=== PATIENT | female | born 1965 | race Caucasian/White ===

== ENCOUNTER 2018-02-21 08:30 | Inpatient (IN) | payer BC ==
--- NOTE | 2018-02-14 11:03 | HP ---
Admitting History and Physical - Primary Care Physician PCP: Jose Olguin - Admission Chief Complaint: Right breast cancer History of Present Illness: 52 year old postmenapausal female who noticed a lump right breast 2016. Mammogram and US 08/2017 showed highly suspicious mass 1.8 cm right breast at 9: 00. 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 MRI done at [facility] was reveiwed at [place] and showed right breast cancer 4.3x3.5x5 cm and another area of enhancement corresponding to calcifications. two other separate sterotactic core bxs were done showing 09/2017 at 10:00 DCIS. and 9: 00 benign findings. FNA of right axillary node was positive for mets. Chemotherapy ACTHP at [place]. Breast MRI 01/2018 showed resolution of enhancement of upper outer quadrant. cancer right breast small right 1:00 enhancement which may be intramammary node recommended comparison. Follow up mammogram and US was also done at [facility].Comparison to MRI showed complete response and unchanged 1:00 density birad 3. History Source: Patient Limitations to Obtaining History: No Limitations - Past Medical History Gastrointestinal: Yes: GERD, Other (diarhea related to chemotherapy) - Past Surgical History Past Surgical History: Yes: Cholecystectomy (LAP) Additional Past Surgical History: rectal [id number] - Smoking History Smoking history: Former smoker Have you smoked in the past 12 months: No - Alcohol/Substance Use Hx Alcohol Use: Yes (social) Home Medications - Allergies Allergies/Adverse Reactions: Allergies Allergy/AdvReac Type Severity Reaction Status Date / Time diphenhydramine AdvReac Verified 02/14/18 11:05 [From Benadryl] - Home Medications Home Medications (free text): lorazaepam,perjetta and herceptin,immodium prn Family Disease History - Family Disease History Family Disease History: CA: Grandparent (pat GM breast ca 60//pat GF bone ca// mat aunt breast ca 54//mat gf esophageal ca), Father (lung with mets) Physical Examination Constitutional: Yes: Well Nourished Breast(s): Yes: Other (small b sized cups without skin changes, mild thickening right upper outer quadrant but no discrete masses no palpable axillary suprclavicular or cervical adenopathy) Problem List - Problems (1) Breast cancer, right Code(s): C50.911 - MALIGNANT NEOPLASM OF UNSP SITE OF RIGHT FEMALE BREAST Qualifiers: Breast location: upper outer quadrant of breast Patient sex: female Assessment/Plan Right breast mastectomy ,lymphoscintogram , sentenel node biopsy, possible axillary node dissection reconstruction
[2018-02-15 12:04] VITALS: BMI 26.9
[2018-02-21] MEDS ORDERED: BUPIVACAINE LIPOSOME/PF (EXPAREL) 266 MG/20 ML VIAL ONE ×2 (09:22→11:06)
[2018-02-21] MEDS ORDERED: BUPIVACAINE HCL/PF 2.5 MG/ML - 30 ML VIAL IJ ONE ×2 (09:22→11:06)
[2018-02-21] MEDS ORDERED: SODIUM CHLORIDE 0.9% P/F 10 ML VIAL IJ ONE ×2 (09:22→11:06)
[2018-02-21] MEDS ORDERED: LIDOCAINE 1%/EPI 1:100000 (20 ML MULTI DOSE VIAL) ONE (09:23)
[2018-02-21] MEDS ORDERED: ZOLPIDEM TARTRATE 5 MG TABLET PO PRN (13:40)
[2018-02-21] MEDS ORDERED: ACETAMINOPHEN 325 MG TABLET (FP) PO PRN (13:40)
[2018-02-21] MEDS ORDERED: ONDANSETRON 4 MG/2 ML VIAL IVPUSH PRN ×2 (13:40→15:02)
[2018-02-21] MEDS ORDERED: DEXTROSE 5%-0.45% SALINE 1,000 ML IV SCH (13:45)
[2018-02-21] MEDS ORDERED: oxyCODONE HCL 5 MG TABLET PO PRN (15:02)
[2018-02-21] MEDS ORDERED: PROMETHAZINE HCL 25 MG/1 ML VIAL IVPUSH PRN (15:02)
--- NOTE | 2018-02-21 15:02 | OP ---
Operative Note - Note: Operative Date: 02/21/18 Pre-Operative Diagnosis: right chest wall abnormality after mastectomy for breast CA. left breast asymmetry Operation: left breast augmentation with implant. right breast reconstruction with alloderm and inplant Post-Operative Diagnosis: Same as Pre-op Surgeon: Clyde Venegas Picture Painter: Sandhya Butler Anesthesiologist/RN ADVICE: Levi Deng Anesthesia: General Estimated Blood Loss (mls): 50 Drains & Tubes with Location: TAYLOR drain x2 right chest wall Fluid Volume Replaced (mls): 1,700 Operative Report Dictated: Yes
--- NOTE | 2018-02-21 15:04 | SURG ---
Surgery Tree Expert Note Tree Expert: Sandhya Butler PA-C Date of Service: 02/21/18 Diagnosis: right chest wall abnormality after mastectomy for breast CA left breast asymmetry Procedure: left breast augmentation with implant right breast reconstruction with alloderm and implant I was present for the entirety of the operative procedure. For further detail, please refer to operative report. <Sandhya Butler - Last Filed: 02/21/18 15:02> I was present for the entirety of the operative procedure. For further detail, please refer to operative report. <Clyde Venegas - Last Filed: 02/22/18 13:22> Visit type - Case Type Case Type: Scheduled - Emergency Emergency Visit: No - New patient This patient is new to me today: Yes Date on this admission: 02/21/18 <Sandhya Butler - Last Filed: 02/21/18 15:02>
[2018-02-21] MEDS ORDERED: LACTATED RINGERS SOLUTION 1,000 ML IV SCH (15:15)
[2018-02-21] MEDS ORDERED: ceFAZolin SODIUM 1 GM VIAL IVPB ONE (15:30)
[2018-02-21] MEDS ORDERED: ceFAZolin SODIUM 1 GM VIAL ONE (15:31)
[2018-02-21] MEDS: CEFAZOLIN 1 GM/D5W 1 GRAM/50 ML BAG IVPB SCH ×2 (16:37→20:58)
[2018-02-22] MEDS: oxyCODONE HCL 5 MG TABLET PO PRN ×5 (01:17→21:41)
[2018-02-22] MEDS: CEFAZOLIN 1 GM/D5W 1 GRAM/50 ML BAG IVPB SCH ×4 (02:32→21:41)
[2018-02-22 07:39] LABS: HEMOGLOBIN 9.8 GM/dl (10.7-15.3); MCH 28.6 pg (25.7-33.7); MCHC 32.6 g/dl (32.0-36.0); MEAN CELL VOLUME 87.7 fl (80-96); MEAN PLT VOLUME 7.6 fl (7.5-11.1); PLATELET COUNT 257 K/MM3 (134-434); RBC 3.42 M/mm3 (3.60-5.2); RDW 13.5 % (11.6-15.6); WHITE BLOOD COUNT 6.6 K/mm3 (4.0-10.8)
[2018-02-22] MEDS: HEPARIN NA (PORCINE) 5,000 UNITS/ML 1ML VIAL SQ SCH ×2 (07:55→21:41)
--- NOTE | 2018-02-22 08:35 | OP ---
DATE OF OPERATION: 02/21/2018 PREOPERATIVE DIAGNOSIS: Right breast cancer, lateral overlapping region. POSTOPERATIVE DIAGNOSIS: Right breast cancer, lateral overlapping region, status post neoadjuvant chemotherapy. PROCEDURE: Right breast nipple-sparing mastectomy with right axillary sentinel lymph node biopsy with direct implant reconstruction and left breast augmentation implant for symmetry. ANESTHESIA: General laryngeal mask airway anesthesia. PRIMARY SURGEON: Jose Olguin MD ADMIN ASST: MANDY Smith PRIMARY SURGEON FOR THE RIGHT BREAST DIRECT IMPLANT RECONSTRUCTION WITH ALLODERM: Jose Venegas MD. He also performed the left breast augmentation implant for symmetry. COMPLICATIONS: There were no complications. INDICATIONS: Briefly, the patient is a 52-year-old premenopausal white female with Martiniquais, [place], [place]ian, and descent. She has a family history with her maternal grandmother who had postmenopausal breast cancer and a maternal aunt who had breast cancer in her 50s. Her maternal grandfather had esophageal cancer and father had lung cancer. The patient was found to have some dimpling towards the outer aspect of the right breast the end of 2016 and eventually underwent a mammography and ultrasound at [facility] in August of 2017 showing a right breast 9 o'clock 1.8-cm mass corresponding to an ultrasound density, and core biopsy showed a poorly differentiated evasive duct cancer, which was ER/WI negative HER2 3+. An MRI showed a 4.3 x 3.5 x 5 cm cancer. 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 She underwent AC-THP chemotherapy at [facility] and then followup MRI after neoadjuvant chemotherapy showed resolution of the axillary enhancement and the breast cancer, but otherwise, a small right breast 1 o'clock density, which was felt to be a likely benign intramammary lymph node on ultrasound. She was advised on undergoing a right breast mastectomy and we spoke t to her about all risks and benefits of the procedure. She wanted to go forward with the nipple-sparing procedure, and given the distance of the nipple, we felt that this would be allowed. However, we did tell her lack of any long-term followup on patients after neoadjuvant chemotherapy. She understood this, and she understood she was going to have post-mastectomy radiation. She was seen by Dr. Venegas, our plastic surgeon preoperatively and chose to have direct implant reconstruction on the right side with AlloDerm and an augmentation on the left side for symmetry. DESCRIPTION OF PROCEDURE: She was brought in for the procedure on February 21, 2018. She first underwent a lymphoscintigraphy at [facility] through a periareolar injection of technetium 99 and then was brought to the [place] holding area. In the holding area, site verification was made and informed consent was obtained. She was marked preoperatively by the plastic surgeon. She was brought into the operating room and laid on the OR table in the supine positon. Venodynes were placed on the lower extremities. She received 2 g of Ancef prior to incision. She was given general laryngeal mask airway anesthesia, and both breasts were sterilely prepped and draped in the usual fashion with the right arm prepped in the field. No blue dye was injected given the nipple-sparing procedure. The surgery was started on the right side with the sentinel lymph node biopsy as Dr. Venegas performed the augmentation implant on the left side, which will be dictated separately. Incision was made just below the hair-bearing area of the right axilla, and dissection was undertaken using the Neoprobe to direct the dissection. Three sentinel lymph nodes removed from the right axillary region in the level1, level 2 region. The 1st sentinel lymph node had a 10-second gamma count of 1364, the 2nd sentinel lymph node had no gamma counts, the 3rd sentinel lymph node had a 10-second gamma count of 229. All 3 nodes were sent for frozen section, came back negative, so, no further nodes were removed. Background counts after removal of these 3 nodes was 57. Hemostasis was achieved. At this point, the mastectomy was performed through an inframammary incision. A 10-cm incision was made in the right breast inframammary fold, and the skin edges were everted, and the breast tissue retracted inferiorly using [place] clamps. The skin flap was raised using the PEAK radiofrequency device superiorly to the level of the clavicle and medially to the level of the sternum and laterally to the level of the latissimus and inferiorly below the level of the inframammary fold. The breast was taken down off the pectoralis major muscle using electrocautery from inferomedial to superolateral, completely removed intact. It was oriented with the long-lateral short-superior suture. It was weighed to allow for appropriate cosmetic result. Specimen radiograph of the breast showed removal of all 3 clips. The wound was copiously irrigated, and skin flaps were trimmed for good cosmetic result. A separate anterior margin was taken on the lateral skin flap and a suture was used to russell the biopsy cavity side. This was sent separately to Pathology as anterior margin, right breast. At this point, the wound was copiously irrigated, and Dr. Venegas became the primary surgeon to perform the direct implant reconstruction on the right side using AlloDerm. Two [place] drains will be placed around the right implant, and all wounds will be closed by plastic surgery using interrupted 3-0 deep dermal PDS suture and a running 4-0 subcuticular PDS suture. We did use the SPY Skin Perfusion Device during the case both before and after the implant reconstruction, which showed excellent skin perfusion. The patient will be recovered and then admitted postoperatively for pain and wound management. All sponge and needle counts were correct at the end of the case, and estimated blood loss was about 125 mL. She was hemodynamically stable throughout. JOSE OLGUIN M.D. [id number]
--- NOTE | 2018-02-22 09:09 | PN ---
Progress Note (short form) - Note Progress Note: Post op day#1.s/p Right mastectomy with axillary LN dissection and left breast augmentation under [place] uneventful.Patient stable.No any anesthesia related problem.Patient DC from the anesthesia care.
--- NOTE | 2018-02-22 09:23 | PN ---
Progress Note, Physician Chief Complaint: S/P right mastectomy with implant reconstruction and left implant reconstruction POD#1 History of Present Illness: Patient was seen at the bedside and reports good pain control with the oral pain meds. She is voiding and tolerating po well. - Current Medication List Current Medications: Active Medications Acetaminophen (Tylenol -) 650 mg PO Q4H PRN PRN Reason: FEVER Heparin Sodium (Porcine) (Heparin -) 5,000 unit SQ BID@0800,2000 [facility] Last Admin: 02/22/18 07:55 Dose: 5,000 unit Cefazolin Sodium (Ancef 1 Gm Premixed Ivpb -) 1 gram in 50 mls @ 100 mls/hr IVPB Q6H-IV [facility] Stop: 02/28/18 14:59 Last Admin: 02/22/18 02:32 Dose: 100 mls/hr Dextrose/Sodium Chloride (D5-1/2ns -) 1,000 mls @ 100 mls/hr IV ASDIR [facility] Last Admin: 02/21/18 16:37 Dose: Not Given Lactated Ringer's (Lactated Ringers Solution) 1,000 mls @ 75 mls/hr IV ASDIR [facility] Last Admin: 02/21/18 16:37 Dose: Not Given Ondansetron HCl (Zofran Injection) 4 mg IVPUSH Q6H PRN PRN Reason: NAUSEA AND/OR VOMITING Oxycodone HCl (Roxicodone -) 5 mg PO Q4H PRN PRN Reason: PAIN LEVEL 1-5 Last Admin: 02/22/18 07:54 Dose: 5 mg Oxycodone HCl (Roxicodone -) 10 mg PO Q4H PRN PRN Reason: PAIN LEVEL 6-10 Zolpidem Tartrate (Ambien -) 5 mg PO HS PRN PRN Reason: Insomnia - Objective Vital Signs: Vital Signs Temperature 99.4 F 02/22/18 06:00 Pulse Rate 74 02/22/18 06:00 Respiratory Rate 18 02/22/18 06:00 Blood Pressure 98/56 02/22/18 06:00 O2 Sat by Pulse Oximetry (%) 98 02/22/18 06:00 Constitutional: Yes: Well Nourished, Calm Breast(s): Yes: Other (Right breast flap with ecchymosis. It is warm to touch without evidence of epidermalysis. Steristrips are intact without discharge or erythema. The JPs have serosanginous discharge.) Labs: CBC, BMP 02/22/18 07:10 Problem List - Problems (1) Breast cancer, right Code(s): C50.911 - MALIGNANT NEOPLASM OF UNSP SITE OF RIGHT FEMALE BREAST Qualifiers: Breast location: upper outer quadrant of breast Patient sex: female Assessment/Plan Assessment: S/P right mastectomy with bilateral implant reconstruction POD #1 Plan: IV axbx while in the hospital OOB with asssistance Teach TAYLOR monitoring Plan for discharge in the am
--- NOTE | 2018-02-22 15:39 | DS ---
Physical Examination Vital Signs: Vital Signs Temperature 98.4 F 02/22/18 14:05 Pulse Rate 82 02/22/18 14:05 Respiratory Rate 16 02/22/18 14:05 Blood Pressure 105/57 L 02/22/18 14:05 O2 Sat by Pulse Oximetry (%) 95 02/22/18 14:05 Constitutional: Yes: Well Nourished Breast(s): Yes: Other (flaps viable right breast moderate echymosis steristrips in place TAYLOR drains functioning well, left breast steristrips in place.) Labs: CBC, BMP 02/22/18 07:10 Discharge Summary Reason For Visit: RIGHT BREAST CA Condition: Good - Instructions Diet, Activity, Other Instructions: Post Operative Instructions - [facility] We hope your recovery will be uneventful. For those of you who have been given general anesthesia, there is a possibility you might have some lightheadedness and possibly nausea. It is important that each patient, especially those who have had general anesthesia, follow these instructions, please: 1. Do NOT operate a motor vehicle for 24 hours. 2. Do NOT drink any alcoholic beverages for 24 hours. 3. Do NOT take any sedatives, narcotics, or tranquilizers for 24 hours unless specifically ordered by your surgeon. 4. Do NOT undertake any strenuous exercise or outside activity for 24 hours unless specifically permitted by your surgeon. 5. Eat light foods that are easy to digest. If you have any problems with nausea and vomiting, lie down and rest. If it continues, call your surgeon. 6. Call your surgeon AT ONCE if you have problems with: a. Bleeding b. Urinating c. Excessive pain or drainage d. Numbness If any problems occur, call your physician first. If you cannot reach him/her, call the Ambulatory Surgery Unit at [phone], or the Emergency Room at . Follow up with Drs. Olguin / Jose in 7 days. Medication: Vicodin E-S OR Percocet 1-2 tablets every 4-6 hrs as needed for 5-7 days. Wound Care: Keep wound dry and clean for 48 hours. You may remove the dressing after 48 hours and may shower. Keep steri-strips in place until follow-up appointment No heavy lifting or strenuous activities. Your surgeon used 3M DuraPrep Surgical Solution, a bacteria-killing skin preparation. It is recommended that this film remain on the skin after the procedure. The film will gradually wear away. If, however, early removal is desired: 1. Apply 8610 or 8611 3M Remover solution to the prepped area , keeping away from the wound edge or puncture site. Wipe off with a disposable towel. OR 2. Soak gauze with 70% Isopropyl alcohol and place on the prepped area for at least 40 seconds. Lightly scrub to remove the solution. BREAST SURGERY INSTRUCTIONS Mayo Olguin M.D., FACS Jose Olguin M.D., FACS Haydee Garcia M.D., FACS 1. Please call the office at to make a follow up appointment with your surgeon. This number can be also used for any urgent issues you may have. 2. Call us immediately if any of the following occur: *Bleeding from the incision or drain site (a small amount is normal) *Fever or chills *Redness and worsening tenderness around the surgical site *Drainage of pus or fluid from the incision or drain site 3. You may change the surgical dressing two (2) days after your surgery, and may shower then. If you have drains, you may shower after they have been removed, until then take a sponge bath. 4. It is normal for there to be some bruising and tenderness around the surgical site, and the breast may also be firm in this area. 5. Your surgeon used 3M DuraPrep Surgical Solution, a bacteria-killing skin preparation. It is recommended that this film remain on the skin after the procedure. The film will gradually wear away. If, however, early removal is desired: 1. Apply 8610 or 8611 3M Remover solution to the prepped area, keeping away from the wound edge or puncture site. Wipe off with a disposable towel. OR 2. Soak gauze with 70% Isopropyl alcohol and place on the prepped area for at least 40 seconds. Lightly scrub to remove the solution. 6. Please wear a comfortable bra (sports or surgical bra) all day and all night until your first follow-up visit with your surgeon. 7. The pain medicine you have been prescribed may make you constipated; make sure you drink plenty of water. You may use an over the counter laxative if needed. 8. You may resume your normal diet after surgery, although you may want to avoid rich foods for the first twenty-four (24) hours after surgery. Alcoholic drinks should be avoided while taking the prescribed pain medicine. 9. You may resume normal activities as long as there is no discomfort, but do not do upper body exercises until after your follow-up appointment. Do not lift anything heavier than a large phone book. You may resume driving once you have stopped taking the prescribed pain medicine and feel comfortable doing arm movements. WEAR BRA/NO SHOWER/EMPTY AND RECORD TAYLOR OUTPUT TWICE DAILY Referrals: Jose Olguin MD [Staff Physician] - Clyde Venegas MD [Staff Physician] - Disposition: HOME - Home Medications Comprehensive Discharge Medication List: Ambulatory Orders L.acidoph,Paracasei, B.lactis [Probiotic] 1 each PO DAILY 02/15/18 Multivitamin [One Daily] 1 each PO DAILY 02/15/18 Cefadroxil 500 mg PO BID #20 capsule 02/22/18 Oxycodone HCl/Acetaminophen [Percocet 5-325 mg Tablet] 1 - 2 tab PO Q6H PRN #30 tab MDD 6 02/22/18
[2018-02-23] MEDS: CEFAZOLIN 1 GM/D5W 1 GRAM/50 ML BAG IVPB SCH (03:00)
[2018-02-23] MEDS ORDERED: CEPHALEXIN MONOHYDRATE 500 MG CAPSULE (UD) PO SCH (06:30)
[2018-02-23 06:56] VITALS: BP 91/57; PULSE 71; TEMP 99.2
[2018-02-23] MEDS: HEPARIN NA (PORCINE) 5,000 UNITS/ML 1ML VIAL SQ SCH (08:56)
--- NOTE | 2018-02-23 11:54 | DS ---
Physical Examination Vital Signs: Vital Signs Temperature 99.2 F 02/23/18 06:00 Pulse Rate 71 02/23/18 06:00 Respiratory Rate 18 02/23/18 06:00 Blood Pressure 91/57 L 02/23/18 06:00 O2 Sat by Pulse Oximetry (%) 97 02/23/18 06:00 Constitutional: Yes: No Distress Wound/Incision: Yes: Clean/Dry, Well Approximated Labs: CBC, BMP 02/22/18 07:10 Discharge Summary Reason For Visit: RIGHT BREAST CA Procedures: Principal: Right NE-MTX with SLNBx + Bilateral Implants Condition: Good - Instructions Diet, Activity, Other Instructions: Post Operative Instructions - [facility] We hope your recovery will be uneventful. For those of you who have been given general anesthesia, there is a possibility you might have some lightheadedness and possibly nausea. It is important that each patient, especially those who have had general anesthesia, follow these instructions, please: 1. Do NOT operate a motor vehicle for 24 hours. 2. Do NOT drink any alcoholic beverages for 24 hours. 3. Do NOT take any sedatives, narcotics, or tranquilizers for 24 hours unless specifically ordered by your surgeon. 4. Do NOT undertake any strenuous exercise or outside activity for 24 hours unless specifically permitted by your surgeon. 5. Eat light foods that are easy to digest. If you have any problems with nausea and vomiting, lie down and rest. If it continues, call your surgeon. 6. Call your surgeon AT ONCE if you have problems with: a. Bleeding b. Urinating c. Excessive pain or drainage d. Numbness If any problems occur, call your physician first. If you cannot reach him/her, call the Ambulatory Surgery Unit at [phone], or the Emergency Room at . Follow up with Drs. Olguin / Jose in 7 days. Medication: Vicodin E-S OR Percocet 1-2 tablets every 4-6 hrs as needed for 5-7 days. Wound Care: Keep wound dry and clean for 48 hours. You may remove the dressing after 48 hours and may shower. Keep steri-strips in place until follow-up appointment No heavy lifting or strenuous activities. Your surgeon used 3M DuraPrep Surgical Solution, a bacteria-killing skin preparation. It is recommended that this film remain on the skin after the procedure. The film will gradually wear away. If, however, early removal is desired: 1. Apply 8610 or 8611 3M Remover solution to the prepped area , keeping away from the wound edge or puncture site. Wipe off with a disposable towel. OR 2. Soak gauze with 70% Isopropyl alcohol and place on the prepped area for at least 40 seconds. Lightly scrub to remove the solution. BREAST SURGERY INSTRUCTIONS Mayo Olguin M.D., FACS Jose Olguin M.D., FACS Haydee Garcia M.D., FACS 1. Please call the office at to make a follow up appointment with your surgeon. This number can be also used for any urgent issues you may have. 2. Call us immediately if any of the following occur: *Bleeding from the incision or drain site (a small amount is normal) *Fever or chills *Redness and worsening tenderness around the surgical site *Drainage of pus or fluid from the incision or drain site 3. You may change the surgical dressing two (2) days after your surgery, and may shower then. If you have drains, you may shower after they have been removed, until then take a sponge bath. 4. It is normal for there to be some bruising and tenderness around the surgical site, and the breast may also be firm in this area. 5. Your surgeon used 3M DuraPrep Surgical Solution, a bacteria-killing skin preparation. It is recommended that this film remain on the skin after the procedure. The film will gradually wear away. If, however, early removal is desired: 1. Apply 8610 or 8611 3M Remover solution to the prepped area, keeping away from the wound edge or puncture site. Wipe off with a disposable towel. OR 2. Soak gauze with 70% Isopropyl alcohol and place on the prepped area for at least 40 seconds. Lightly scrub to remove the solution. 6. Please wear a comfortable bra (sports or surgical bra) all day and all night until your first follow-up visit with your surgeon. 7. The pain medicine you have been prescribed may make you constipated; make sure you drink plenty of water. You may use an over the counter laxative if needed. 8. You may resume your normal diet after surgery, although you may want to avoid rich foods for the first twenty-four (24) hours after surgery. Alcoholic drinks should be avoided while taking the prescribed pain medicine. 9. You may resume normal activities as long as there is no discomfort, but do not do upper body exercises until after your follow-up appointment. Do not lift anything heavier than a large phone book. You may resume driving once you have stopped taking the prescribed pain medicine and feel comfortable doing arm movements. WEAR BRA/NO SHOWER/EMPTY AND RECORD TAYLOR OUTPUT TWICE DAILY Referrals: Jose Olguin MD [Staff Physician] - Clyde Venegas MD [Staff Physician] - Disposition: HOME - Home Medications Comprehensive Discharge Medication List: Ambulatory Orders L.acidoph,Paracasei, B.lactis [Probiotic] 1 each PO DAILY 02/15/18 Multivitamin [One Daily] 1 each PO DAILY 02/15/18 Cefadroxil 500 mg PO BID #20 capsule 02/22/18 Oxycodone HCl/Acetaminophen [Percocet 5-325 mg Tablet] 1 - 2 tab PO Q6H PRN #30 tab MDD 6 02/22/18
--- NOTE | 2018-02-24 09:53 | OP ---
DATE OF OPERATION: 02/21/2018 SURGEON: Jose Venegas MD NETWORK OPERATIONS TECHNICIAN: Sandhya Butler PA-C PREOPERATIVE DIAGNOSES: 1. Right breast cancer. 2. Acquired chest wall deformity, status post breast cancer and mastectomy. 3. Asymmetry of reconstructed chest wall. POSTOPERATIVE DIAGNOSES: 1. Right breast cancer. 2. Acquired chest wall deformity, status post breast cancer and mastectomy. 3. Asymmetry of reconstructed chest wall. OPERATIVE PROCEDURE: 1. Right immediate breast reconstruction utilizing immediate insertion of silicone breast implant and AlloDerm reconstruction. 2. Left breast augmentation for symmetry post breast cancer. 3. Intraoperative Spy angiogram for diagnosis. 4. Interpretation of intraoperative angiogram x2. OPERATIVE INDICATION: The patient is a young woman of 52 years' age brought to the operating room by Dr. Jose Olguin for a right breast mastectomy and sentinel lymph node biopsy. The patient had previously undergone neoadjuvant chemotherapy and had a port previously placed on the chest wall on the left side. She required mastectomy and reconstruction with implant for reconstruction and symmetry on the opposite side. The risks and benefits of surgical versus nonsurgical alternatives as well as material complications were described to the patient on multiple occasions preoperatively, including today in the holding area, where she was marked in the standing position for outline of the incisions and planned with Dr. Olguin. All questions were asked and answered. OPERATIVE PROCEDURE IN DETAIL: The patient was taken to the operating room and, after induction of general anesthesia, Dr. Olguin began the right breast dissection, which will be dictated under a separate cover by him. At the same time, I began the procedure on the left breast in order to reconstruct the chest wall and create symmetry with the new reconstructed breast. An augmentation of the left breast with the previous port placement was planned and discussed with the patient preoperatively. She agreed to the planned procedure. At this point, I began the procedure by making a 4-cm incision in the inframammary fold of the left breast and then, using the lighted retractor and dissection, a subpectoral pocket was created on the left breast in order to place an implant. Dissection was carried superiorly from the 2nd rib medially to the sternal fibers and then down to the inframammary fold, where the origin of the pectoralis major muscle was divided. Hemostasis was meticulously obtained throughout. At this point, a long-acting Marcaine/Exparel solution in a diluted form was injected into the pectoralis major muscle and into the chest wall after dissection. At this point, an implant was chosen for reconstruction and a Natrelle Inspira SoftTouch breast implant, style SSM, 195 mL, was placed into this subpectoral pocket. Once this was accomplished, good shape and contour was seen, hemostasis was obtained meticulously throughout the breast, and matched the opposite breast. This was then closed in 3 layers using 3-0 PDS suture on the deep fascial of the left breast, 3-0 in a deep dermal fashion, and 4-0 Biosyn in a subcuticular fashion. Upon completion of the mastectomy and cancer operation on the right, a reconstruction of the right breast was carried out. At this point, the pectoralis major muscle was elevated on the right side, lifting the muscle superiorly from the 2nd rib, medially to the sternal fibers, dividing the origin of the pectoralis major muscle inferiorly and then bringing a contour perforated sheet of AlloDerm into the field. In the usual fashion, this was sutured to the pectoralis major muscle using a 3-0 Vicryl suture in a running fashion along the pectoralis major muscle itself, down to the lateral mammary fold on the right breast and then a 2nd suture begun on the medial side, running medially along the inframammary fold. Because 263 g of tissue were removed from this breast, an implant was chosen to match the opposite breast of 450 mL volume. A Natrelle Inspira SoftTouch breast implant, style SSF, 450 mL, was then placed into the right breast pocket and showed good symmetry in the sitting position. The sutures were then run medially towards themselves and sutured and tied together. Copious irrigation of the wound was performed and then 2 Tim-Woodard drains were brought out through separate stab wounds. The skin and subcutaneous tissue was advanced and closed upon itself using 3-0 PDS on the deep tissue, 3-0 in a deep dermal fashion, and 4-0 in a subcuticular fashion. All wounds were then closed and dressed with Dermabond, Steri-Strips, and a compressive dressing with a Fluffs dressing and gauze. Just after the mastectomy was performed, a Spy intraoperative angiogram was performed by injecting 4 mL of isocyanide green dye into the intravascular system and interpreting the right breast blood flow as adequate. This was then reperformed after the implant went in on the right breast to reveal good blood flow even after the implant was placed. All wounds were dressed sterilely. The patient was awakened, extubated, and transferred to the recovery room in satisfactory condition. She tolerated the procedure well. JOSE VENEGAS M.D. AMBER/[id number]
[2018-02-24] MEDS ORDERED: MULTIVITAMIN PO SCH (10:00)
[2018-02-24] MEDS ORDERED: PATIENT'S OWN MEDICATION (NON-FORMULARY) (L.Acidoph,Paracasei, B.Lactis [Probiotic] 1 EACH PO SCH (10:00)
--- NOTE | 2018-02-26 12:57 | PATH ---
Surgical Pathology Report Patient Name: NARCISO BARRETT Med. Rec. #: [id number] /Age/Gender: 1965 (Age: 52) / F Account: [id number] Location: ON LICENSE OF [facility] MED-SURG Taken: 02/21/2018 Received: 02/21/2018 Reported: 02/26/2018 Physicians: Jose Olguin M.D. Specimen(s) Received A: RIGHT BREAST SENTINEL LYMPH NODE #1 (FS) B: RIGHT BREAST SENTINEL LYMPH NODE #2 (FS) C: RIGHT BREAST SENTINEL LYMPH NODE #3 (FS) D: RIGHT RETROAREOLAR BIOPSY (FS) E: RIGHT BREAST MASTECTOMY F: RIGHT BREAST ANTERIOR MARGIN Clinical History Rt breast Ca Intraoperative Consult Diagnosis A. [place] node #1, right breast, frozen section: One negative lymph node. B. [place] node #2, right breast, frozen section: Two negative lymph nodes. Comment: One lymph node shows fibrosis and reactive changes, consistent with treatment effect; focal residual metastatic carcinoma cannot be entirely excluded. C. [place] node #3, right breast, frozen section: One negative lymph node. D. Right retroareolar biopsy, frozen section: Negative for malignancy. Joe Sauceda 02/21/18. Final Diagnosis A. BREAST, RIGHT, SENTINEL LYMPH NODE #1, EXCISION (FS): ONE LYMPH NODE, NEGATIVE FOR METASTATIC CARCINOMA ON H&E STAINED SECTIONS AND CYTOKERATIN (AE 1/3) IMMUNOSTAIN. (0/1). B. BREAST, RIGHT, SENTINEL LYMPH NODE #2, EXCISION (FS): TWO LYMPH NODES, NEGATIVE FOR METASTATIC CARCINOMA ON H&E STAINED SECTIONS AND CYTOKERATIN (AE 1/3) IMMUNOSTAINS. (0/2). SEE NOTE. Note: One lymph node shows an area of fibrous scarring and histiocytic reaction, consistent with focus of treated metastatic carcinoma. C. BREAST, RIGHT, SENTINEL LYMPH NODE #3, EXCISION (FS): ONE LYMPH NODE, NEGATIVE FOR METASTATIC CARCINOMA ON H&E STAINED SECTIONS AND CYTOKERATIN (AE 1/3) IMMUNOSTAIN. (0/1). D. RETROAREOLA, RIGHT, BIOPSY (FS): BENIGN BREAST TISSUE; NEGATIVE FOR MALIGNANCY. E. BREAST, RIGHT, NIPPLE-SPARING MASTECTOMY: NO RESIDUAL CARCINOMA IDENTIFIED. BENIGN BREAST TISSUE SHOWING DENSE HYALINIZING FIBROSIS WITH HISTIOCYTIC REACTION, CONSISTENT WITH TREATED TUMOR BED TISSUE. REMAINING BREAST TISSUE SHOWS SCLEROSING ADENOSIS, FOCAL ATYPICAL DUCTAL HYPERPLASIA (ADH) AND ASSOCIATED CALCIFICATIONS. PATHOLOGIC STAGE (ypTNM): ypT0 ypN0. See also prior biopsies from outside institutions ([id number], [id number], [id number]: our slide review case # [id number]). F. BREAST, RIGHT, ANTERIOR MARGIN, EXCISION: BENIGN FIBROADIPOSE TISSUE AND SKELETAL MUSCLE. Electronically Signed Sandhya Lin M.D. Gross Description A. Received fresh, labeled "right sentinel node #1" is a 1.2 x 0.8 x 0.2 cm portion of fibrofatty tissue in which a possible small lymph node is identified. Frozen section is performed on the specimen. The frozen section residue is entirely submitted in one cassette labeled FSA. B. Received fresh, labeled "right sentinel node #2" are two portions of fibrofatty tissue measuring 1.3 x 1.0 x 0.2 cm and 2.2 x 1.2 x 0.4 cm. Possible nodular tissue, consistent with lymph node tissue is identified in both tissue fragments. The larger tissue fragment is bisected and frozen section is performed on both specimens. The frozen section residue is entirely submitted in two cassettes as follows: FSB1: Smaller tissue fragment, FSB2: Larger tissue fragment, bisected. C. Received fresh, labeled "right sentinel node #3" is a 1.0 x 0.8 x 0.2 cm portion of fibrofatty tissue in which a possible small lymph node is identified. Frozen section is performed on the specimen. The frozen section residue is entirely submitted in one cassette labeled FSC. D. Received fresh, labeled "right retroareolar biopsy" is a 1.4 x 1 x 0.2 cm portion of pink-perez tissue. Frozen section is performed on the specimen. The frozen section residue is entirely submitted in one cassette labeled FSD. E. Received in formalin, labeled "right breast," is a 258 gram, 15.0 x 15.0 x 2.8 cm. right mastectomy specimen with a short suture marking the superior aspect and a long suture marking the lateral aspect of the specimen, per the surgeon. There is no skin or nipple present. The deep margin is inked black and the anterior soft tissue margin is inked blue. The specimen is serially sectioned from lateral to medial. Sectioning reveals a 4.0 x 2.8 x 1.4 cm focus of dense, white, focally firm fibrous tissue in the upper outer quadrant (UOQ). The fibrous tissue contains 2 an metallic biopsy clips. No definitive residual mass is identified. The remaining breast parenchyma displays multiple foci of dense white fibrous tissue. Map Editor sections are submitted in 17 cassettes as follows: 1-2-one full-face bisected section of firm fibrous tissue in UOQ (each with deep margin and anterior soft tissue margin); 9-9-zvnywllsso sections from area of firm fibrous tissue in UOQ; 10-11-lower outer quadrant; 12-13-upper inner quadrant; 14-15-lower inner quadrant; 16-anterior soft tissue margin; 17-deep margin. Time to formalin fixation: Not given Total formalin fixation time: Approximately 29 hours F. Received in formalin labeled "right breast anterior margin," is a 5.5 x 3.2 x 1.8 cm portion of fibroadipose tissue with a suture marking the biopsy cavity side, per the surgeon. The new margin is inked green and the specimen is serially sectioned. The specimen is entirely and sequentially submitted in 11 cassettes. DL/02/22/2018 ebram/02/21/2018
== END 2018-02-23 14:15 | disposition home or self-care (01) | DRG 581 ==
LOC: FM/S 09:08 → EDSTATUS 09:30 → FM/S 16:25
PROVIDERS: ADMIT Surgery Surgical Oncology; ATTEND Surgery Surgical Oncology
PROC: 4A1GXSH Monitoring of Skin and Breast Vascular Perfusion using Indocyanine Green Dye, External Approach (ICD-10-PCS; 2018-02-21)
PROC: 0HTT0ZZ Resection of Right Breast, Open Approach (ICD-10-PCS; principal; 2018-02-21 10:54)
PROC: 07B50ZX Excision of Right Axillary Lymphatic, Open Approach, Diagnostic (ICD-10-PCS; 2018-02-21 10:54)
PROC: 0HUT0JZ Supplement Right Breast with Synthetic Substitute, Open Approach (ICD-10-PCS; 2018-02-21 10:54)
PROC: 0H0U0JZ Alteration of Left Breast with Synthetic Substitute, Open Approach (ICD-10-PCS; 2018-02-21 10:54)
DX: C50.411 Malignant neoplasm of upper-outer quadrant of right female breast (principal); M95.4 Acquired deformity of chest and rib
CPT/HCPCS: 36415; 78195-TC; 85027; 88307-TC; 94760; A9541; J1644